=== PATIENT | female | born 1950 | race Caucasian/White ===

== ENCOUNTER 2019-02-23 13:11 | Outpatient (CLI) | payer MEDICARE ==
--- NOTE | 2019-02-23 20:28 | ULT ---
BILATERAL RENAL ULTRASOUND: 02/23/19 Ultrasonography of the urinary tract was performed in this patient with chronic kidney disease. The right kidney measures 10.1 x 5.2 x 4.9 cm. No mass or hydronephrosis is present. The left kidney measures 9.8 x 6.5 x 5.2 cm. No mass or hydronephrosis was seen in it. The cortex around each kidney was normal in thickness. Echogenicity of the cortex was roughly normal. Scans through the urinary bladder showed no internal masses. Bilateral ureteral jets were noted. The wall thickness is probably within normal limits given the degree of distention. IMPRESSION: No significant urinary tract findings. POS: HOME
== END 2019-02-23 13:12 | disposition home or self-care (01) ==
LOC: BURULT 13:11
PROVIDERS: ATTEND Internal Medicine Nephrology
DX: N18.3 Chronic kidney disease, stage 3 (moderate) (principal)
CPT/HCPCS: 76770

== ENCOUNTER 2022-08-13 08:45 | Emergency (ER) | payer MEDICARE ==
[2022-08-13] MEDS ORDERED: Ibuprofen 200 MG TAB ONE (09:28)
[2022-08-13 09:51] LABS: #Basophils 0.1 thou/uL (0.0-0.2); #Eosinphils 0.2 thou/uL (0.0-0.7); #Lymphocytes 0.6 thou/uL (1.20-3.40); #Monocytes 0.4 thou/uL (0.11-0.59); #Neutrophils 9.6 thou/uL (1.40-6.50); %Basophils 0.7 % (0.0-1.0); %Eosinophils 1.5 % (0.0-10.0); %Lymphocytes 5.6 % (21.0-51.0); %Monocytes 3.7 % (0.0-10.0); %Neutrophils 88.4 % (42.0-75.0); Hemoglobin 14.2 g/dL (12.0-16.0); Mean Corpuscular HGB CONC 31.7 g/dL (32.0-36.0); Mean Corpuscular Hemoglobin 29.2 pg (27.0-31.0); Mean Platelet Volume 7.1 fL (7.4-10.4); Platelet Count 265 thou/uL (130-400); RBC Distribution Width 13.7 % (11.5-14.5); Red Blood Cell (RBC) Count 4.87 mill/uL (4.20-5.40); White Blood Cell (WBC) Count 10.8 thou/uL (4.8-10.8)
[2022-08-13 10:03] LABS: Anion Gap 14 mmol/L (10-20); BUN (Urea Nitrogen) 23 mg/dL (9.8-20.1); Calc. Creatinine Clearance 0 mL/min (70-130); Calcium 9.9 mg/dL (7.8-10.44); Carbon Dioxide 24 mmol/L (23-31); Chloride 104 mmol/L (98-107); Estimated GFR 47; Glucose 261 mg/dL (80-115); Potassium 4.1 mmol/L (3.5-5.1); Sodium 138 mmol/L (136-145)
== END 2022-08-13 11:48 | disposition home or self-care (01) ==
LOC: BURERS 08:45
DX: R05.9 Cough, unspecified (principal); R50.9 Fever, unspecified; E11.9 Type 2 diabetes mellitus without complications; E03.9 Hypothyroidism, unspecified; E78.5 Hyperlipidemia, unspecified; I10 Essential (primary) hypertension; Z79.899 Other long term (current) drug therapy
CPT/HCPCS: 71046; 80048; 83605; 85025; 87804

== ENCOUNTER 2022-10-08 15:14 | Outpatient (CLI) | payer MEDICARE | END 2022-10-08 15:15 | disposition home or self-care (01) | LOC: BURRAD 15:14 | PROVIDERS: ATTEND Family Medicine | DX: M54.42 Lumbago with sciatica, left side (principal); M47.816 Spondylosis without myelopathy or radiculopathy, lumbar region | CPT/HCPCS: 72110 ==

== ENCOUNTER 2025-10-06 08:45 | Emergency (ER) | payer MEDICARE | END 2025-10-06 09:26 | disposition home or self-care (01) | LOC: BURERS 08:45 | DX: B34.9 Viral infection, unspecified (principal); E11.9 Type 2 diabetes mellitus without complications; E03.9 Hypothyroidism, unspecified; I10 Essential (primary) hypertension; E78.5 Hyperlipidemia, unspecified; Z79.84 Long term (current) use of oral hypoglycemic drugs; Z79.899 Other long term (current) drug therapy | CPT/HCPCS: 87081; 87428; 87430; 99284 ==